=== PATIENT | female | born 1990 | race Caucasian/White ===

== ENCOUNTER 2017-10-21 12:15 | Emergency (ER) | payer OTHER ==
[2017-10-21 12:21] VITALS: O2SAT 98
--- NOTE | 2017-10-21 12:35 | CPEKG ---
Heart Rate: 47 RR Interval: 1277 P-R Interval: 156 QRSD Interval: 102 QT Interval: 436 QTC Interval: 386 P Aulander: 71 QRS Aulander: 199 T Wave Aulander: 36 EKG Severity - BORDERLINE ECG - EKG Impression: BRADYCARDIA WITH IRREGULAR RATE 41-53 EKG Impression: RIGHT AXIS DEVIATION Electronically Signed By: Jasen Venegas 21-Oct-2017 12:55:30
--- NOTE | 2017-10-21 12:36 | EDPHY ---
H & P Stated Complaint: Pain L lower ant rib increases w/breath;has neck problems she wants checked Time Seen by Provider: 10/21/17 12:35 HPI/ROS: HPI: This is a 27-year-old female who presents with Chief Complaint: Pain L lower ant rib increases w/breath;has neck problems she wants checked Location: Left lower anterior rib Quality: Aching pain Duration: 1 hr prior to arrival Signs and Symptoms: no shortness of breath at rest, no shortness of breath on exertion, no cough, no chest pain, no palpitations, no lower extremity edema, no wheezing, no orthopnea, no paroxysmal nocturnal dyspnea, no fever, no injury/ trauma, no hemoptysis, no carpal pedal spasms Timing: Acute Severity: [id number] Context: patient has a history of anxiety presents to the emergency room with complaints of left lower anterior rib discomfort worsens with palpation of the area. She reports that the pain started while she was performing gentle stretching exercises this morning. Denies any trauma. Takes oral control pills. Nonsmoker. No recent long distance travel. Denies any upper respiratory symptoms or systemic signs. Modifying Factors: Comment: ROS: see HPI Constitutional: No fever, no chills, no weight loss Eyes: No blurred vision Respiratory: No shortness of breath, no cough Cardiovascular: No chest pain, no palpitations, no lower extremity edema Gastrointestinal: No nausea, no vomiting, no diarrhea Genitourinary: No dysuria Extremities: No myalgias Neurologic: No weakness, no numbness Skin: No rashes Hematologic: No bruising, no bleeding MEDICAL/SURGICAL/SOCIAL HISTORY: Medical history: Generally healthy. Does not take any regular medications. Surgical history: Denies Social history: CONSTITUTIONAL: awake and alert, no obvious distress HEENT: Atraumatic and normocephalic, PERRL, EOMI. Tympanic membranes clear. Oropharynx clear, no exudate and moist pink mucosa. Airway patent. No lymphadenopathy. No meningismus. Cardiovascular: Normal S1/S2, regular rate, regular rhythm, without murmur rub or gallop. PULMONARY/CHEST: Symmetrical and nontender. Clear to auscultation bilaterally. Good air movement. No accessory muscle usage. ABDOMEN: Soft, nondistended, nontender, no rebound, no guarding, no peritoneal signs, no masses or organomegaly. No CVAT. EXTREMITIES: 2/2 pulses, strength 5/5, no deformities, no clubbing, no cyanosis or edema. NEUROLOGICAL: no focal neuro deficits. GCS 15. SKIN: Warm and dry, no erythema. no rash. Good capillary refill. Source: Patient Exam Limitations: No limitations - Personal History LMP (Females 10-55): Now Current Tetanus Diphtheria and Acellular Pertussis (TDAP): Yes - Medical/Surgical History Other PMH: neck problems x "years" - Social History Smoking Status: Never smoked Constitutional: Initial Vital Signs Temperature (C) 36.7 C 10/21/17 12:15 Heart Rate 67 10/21/17 12:15 Respiratory Rate 16 10/21/17 12:15 Blood Pressure 121/70 H 10/21/17 12:15 O2 Sat (%) 98 10/21/17 12:15 O2 Delivery Mode Room Air Allergies/Adverse Reactions: No Known Allergies Allergy (Unverified 10/21/17 12:21) Home Medications: Medication Instructions Recorded Cyclobenzaprine [Flexeril 10 MG 10 mg PO TID PRN #15 tab 10/21/17 (*)] Desogestrel-Ethinyl Estradiol 1 each PO 10/21/17 [Cyred 28 Day Tablet] Sertraline HCl [Zoloft 25mg (*)] 25 mg PO DAILY 10/21/17 buPROPion [Wellbutrin] 100 mg PO 10/21/17 Medical Decision Making - Diagnostics EKG Interpretation: 12 lead EKG: Indication: Chest pain Rhythm: Normal sinus rhythm Kamrar: Normal Intervals: Normal QRS: Normal ST segments: Normal INTERPRETATION: Normal EKG The 12 lead EKG was interpreted by myself and with attending. Imaging Results: Imaging Impressions Chest X-Ray 10/21/17 12:47 Impression: No acute abnormality. ED Course/Re-evaluation: EKG, chest x-ray, labs, oral medications ordered Given ibuprofen 800 mg with adequate relief of pain EKG shows no signs of ischemia or arrhythmia Labs are grossly unremarkable including no signs of anemia/VTE/acute kidney injury/electrolyte imbalance Chest x-ray my read shows no signs of effusion, opacity, pneumothorax, widened mediastinum. Advised supportive care. Vital signs improved at discharge. This patient was seen under the supervision of my secondary supervising physician. I evaluated care for this patient independently. Discussed this patient with Dr. Venegas who did not see the patient. Differential Diagnosis: Chest pain including but not limited to myocardial ischemia, pulmonary embolus, chest wall pain, pleural inflammation and pulmonary infectious causes. - Data Points Laboratory Results: Laboratory Results 10/21/17 12:32 10/21/17 12:32 10/21/17 10/21/17 10/21/17 12:32 12:32 12:32 WBC RBC Hgb Hct MCV MCH MCHC RDW Plt Count MPV Neut % (Auto) Lymph % (Auto) [place] % (Auto) Eos % (Auto) Baso % (Auto) Nucleat RBC Rel Count Absolute Neuts (auto) Absolute Lymphs (auto) Absolute Monos (auto) Absolute Eos (auto) Absolute Basos (auto) Absolute Nucleated RBC Immature Gran % Immature Gran # D-Dimer < 0.27 ug/mLFEU ug/mLFEU (0.00-0.50) Sodium 141 mEq/L mEq/L (135-145) Potassium 4.3 mEq/L mEq/L (3.5-5.2) Chloride 104 mEq/L mEq/L (97-110) Carbon Dioxide 24 mEq/l mEq/l (22-31) Anion Gap 13 mEq/L mEq/L (8-16) BUN 15 mg/dL mg/dL (7-23) Creatinine 0.7 mg/dL mg/dL (0.6-1.0) Estimated GFR > 60 Glucose 74 mg/dL mg/dL (70-100) Calcium 9.3 mg/dL mg/dL (8.5-10.4) Beta HCG, Qual NEGATIVE 10/21/17 12:32 WBC 5.89 10^3/uL 10^3/uL (3.80-9.50) RBC 4.94 10^6/uL 10^6/uL (4.18-5.33) Hgb 14.8 g/dL g/dL (12.6-16.3) Hct 45.1 % % (38.0-47.0) MCV 91.3 fL fL (81.5-99.8) MCH 30.0 pg pg (27.9-34.1) MCHC 32.8 g/dL g/dL (32.4-36.7) RDW 13.2 % % (11.5-15.2) Plt Count 288 10^3/uL 10^3/uL (150-400) MPV 9.3 fL fL (8.7-11.7) Neut % (Auto) 50.0 % % (39.3-74.2) Lymph % (Auto) 41.9 % % (15.0-45.0) [place] % (Auto) 6.3 % % (4.5-13.0) Eos % (Auto) 0.8 % % (0.6-7.6) Baso % (Auto) 0.8 % % (0.3-1.7) Nucleat RBC Rel Count 0.0 % % (0.0-0.2) Absolute Neuts (auto) 2.94 10^3/uL 10^3/uL (1.70-6.50) Absolute Lymphs (auto) 2.47 10^3/uL 10^3/uL (1.00-3.00) Absolute Monos (auto) 0.37 10^3/uL 10^3/uL (0.30-0.80) Absolute Eos (auto) 0.05 10^3/uL 10^3/uL (0.03-0.40) Absolute Basos (auto) 0.05 10^3/uL 10^3/uL (0.02-0.10) Absolute Nucleated RBC 0.00 10^3/uL 10^3/uL (0-0.01) Immature Gran % 0.2 % % (0.0-1.1) Immature Gran # 0.01 10^3/uL 10^3/uL (0.00-0.10) D-Dimer Sodium Potassium Chloride Carbon Dioxide Anion Gap BUN Creatinine Estimated GFR Glucose Calcium Beta HCG, Qual Medications Given: Discontinued Medications Ibuprofen (Motrin) 800 mg PO EDNOW ONE Stop: 10/21/17 12:49 Last Admin: 10/21/17 12:53 Dose: 800 mg Departure - Departure Disposition: Home, Routine, Self-Care Clinical Impression: Chest wall muscle strain Qualifiers: Encounter type: initial encounter Qualified Code(s): S29.011A - Strain of muscle and tendon of front wall of thorax, initial encounter Condition: Good Instructions: Musculoskeletal Pain (ED), Chest Wall Pain (ED) Additional Instructions: Labs and chest x-ray today are grossly unremarkable. You do not have any signs of a pulmonary embolism or blood clot in your lung. Take Tylenol 650 mg every 4 hours and/or Ibuprofen 600 mg every 8 hours with food as needed for pain. Use Flexeril 1 tab every 8 hr as needed for muscle spasms. Apply heat for 30 minutes at a time; 2-3 times per day for the next 1-2 days. Follow up with PCP in 1-2 weeks symptoms persist or worsen. Return to the ER immediately if you experience new or worsening pain, discoloration, numbness, tingling, or any other symptoms that concern you. Referrals: PCP Not In,Dictionary [Medical Doctor] - As per Instructions Prescriptions: Cyclobenzaprine [Flexeril 10 MG (*)] 10 mg PO TID PRN #15 tab PRN Reason: Spasms
[2017-10-21] MEDS ORDERED: IBUPROFEN 800 MG TAB PO ONE (12:48)
[2017-10-21 13:02] LABS: PLATELET COUNT 288 10^3/uL (150-400)
[2017-10-21 13:35] VITALS: BP 102/69; PULSE 79; RESP 18; TEMP 98.2
== END 2017-10-21 13:33 | disposition home or self-care (01) ==
DX: S29.011A Strain of muscle and tendon of front wall of thorax, initial encounter (principal); X58.XXXA Exposure to other specified factors, initial encounter; Y99.8 Other external cause status; Y93.B9 Activity, other involving muscle strengthening exercises